=== PATIENT | male | born 1980 | race Caucasian/White ===

== ENCOUNTER 2021-03-31 22:17 | Emergency (ER) | payer MEDICAID ==
[~2021-03-31] VITALS: Ht 175.3 cm; Wt 108.9 kg
[2021-03-31 22:20] VITALS: BP 143/96
--- NOTE | 2021-03-31 22:23 | NUR ---
ANG LINK TAKEN TO BED #1
--- NOTE | 2021-03-31 22:55 | NUR ---
ARRIVED TO BEDSIDE WITH PATIENT, ALERT AND ORIENTED, TRACKING WITH EYES WHILE AT BEDISDE. PATIENT RESTING IN A POSITION OF COMFORT. PATIENT COMPLAINS OF INDIGESTION AFTER EATING WHILE AT THE [employer]. NO COMPLAINTS OF CHEST PAIN, ROOM AIR, DENIES SOB, CONTINUOUS TELE MONITOR. PATIENT STATED HAVING A MEDICAL HISTORY OF [place], HEART STENT AND THROMBOCYTOPENIA. WILL CONTINUE TO CLOSELY MONITOR.
--- NOTE | 2021-03-31 23:04 | NUR ---
DR. SEN AT BEDSIDE FOR MSE
[2021-03-31] MEDS ORDERED: NACL 0.9% 1,000 ML IV ONE (23:15)
[2021-03-31] MEDS ORDERED: LORazepam 2 MG/ML VIAL IVP ONE (23:15)
[2021-03-31 23:33] LABS: BASOPHILS % (AUTO) 0.4 % (0.0-2.0); EOSINOPHILS % (AUTO) 0.2 % (0.0-4.0); HEMATOCRIT 48.6 % (36-52); HEMOGLOBIN 16.6 g/dL (12.0-18.0); LYMPHOCYTES % (AUTO) 11.1 % (20.5-51.1); MEAN CORPUSCULAR HEMOGLOBIN 30 pg (27-31); MEAN CORPUSCULAR HGB CONC 34 g/dL (33-37); MEAN CORPUSCULAR VOLUME 86.6 fL (80-94); MONOCYTES # (AUTO) 0.3 K/uL (0.8-1.0); MONOCYTES % (AUTO) 3.5 % (1.7-9.3); NEUTROPHILS # (AUTO) 7.5 K/uL (1.8-7.7); NEUTROPHILS % (AUTO) 84.8 % (42.2-75.2); PLATELET COUNT (AUTO) 514 K/uL (140-450); RED BLOOD CELL COUNT(AUTO) 5.61 MIL/uL (4.20-6.10); RED CELL DISTRIBUTION WIDTH 14.8 % (11.6-13.7); WHITE BLOOD COUNT (AUTO) 8.9 K/uL (4.8-10.8)
[2021-03-31 23:54] LABS: ALBUMIN 3.9 g/dL (3.4-5.0); ANION GAP 14.4 (8-16); CARBON DIOXIDE 23.1 mmol/L (21-32); CREATININE 1.2 mg/dL (0.6-1.3); FREE T4 (FREE THYROXINE) 1.02 ng/dL (0.76-1.46); POTASSIUM 3.5 mmol/L (3.5-5.1); THYROID STIMULATING HORMONE 1.02 uIU/mL (0.34-3.74); TOTAL BILIRUBIN 0.8 mg/dL (0.0-1.0)
--- NOTE | 2021-04-01 01:50 | NUR ---
Patient appears to be resting comfortably in bed. Vital Signs within normal limits. Respirations even and unlabored.
[2021-04-01] MEDS ORDERED: MAG-27 PO (02:09)
--- NOTE | 2021-04-01 02:55 | NUR ---
ZAIN Fitzgerald at bedside reviewing results prior to D/C.
--- NOTE | 2021-04-01 03:29 | NUR ---
Patient discharged with v/s stable. Written and verbal after care instructions given and explained. Patient alert, oriented and verbalized understanding of instructions. Ambulatory with steady gait. All questions addressed prior to discharge. ID band removed. Patient advised to follow up with PMD. Rx of MYLANTA given PER MD. Patient educated on indication of medication including possible reaction and side effects. Opportunity to ask questions provided and answered.
[2021-04-01 03:34] VITALS: BP 122/82
== END 2021-04-01 03:25 | disposition home or self-care (01) ==
LOC: MED 22:17
DX: R00.2 Palpitations (principal); F41.9 Anxiety disorder, unspecified; Z79.899 Other long term (current) drug therapy; Z98.890 Other specified postprocedural states
CPT/HCPCS: 36415; 71045; 80053; 83690; 84439; 84443; 84484; 85025; 85379; 93005; 96361; 96374; 99285; J2060; J7030